=== PATIENT | female | born 1945 ===

== ENCOUNTER 2019-02-03 13:39 | Emergency (ER) | payer MEDICARE ==
[2019-02-03 13:45] VITALS: BMI 38.0
[2019-02-03 13:51] VITALS: RESP 18; TEMP 99.3
--- NOTE | 2019-02-03 14:31 | ED PDOC ---
Arrival/HPI - General Chief Complaint: Lower Extremity Problem/Injury Time Seen by Provider: 02/03/19 13:41 Historian: Patient, Other (daughter) - History of Present Illness Narrative History of Present Illness (Text): 02/03/19 14:28 A 73 year old Mexican-speaking female (translation provided by daughter), whose past medical history includes hypertension and hyperlipidemia, presents to the ED accompanied by daughter for an increased swelling in right leg for the past 2 weeks. Daughter reports swelling is intermittent for the past year but has increased for the past 2 weeks. Daughter states previous X-Rays and ultrasounds were negative for any abnormalities. Daughter notes patient is able to ambulate. Daughter denies patient has any fevers, chills, headache, dizziness, chest pain, shortness of breath, dyspnea on exertion, cough, abdominal pain, nausea, vomiting, diarrhea, back pain, neck pain, urinary/bowel changes, or any other complaints. Time/Duration: Other (2 weeks) Symptom Onset: Gradual Symptom Course: Worsening Activities at Onset: Light Context: Home Past Medical History - Provider Review Nursing Documentation Reviewed: Yes Primary Care Provider: Althea Galo - Infectious Disease Hx of Infectious Diseases: None - Reproductive Menopause: Yes - Cardiac Hx Hypertension: Yes - Pulmonary Hx Respiratory Disorders: No - Neurological Hx Neurological Disorder: No - HEENT Hx HEENT Disorder: Yes Hx Cataracts: Yes (IMMATURE) - Renal Hx Renal Disorder: No - Endocrine/Metabolic Hx Endocrine Disorders: No - Hematological/Oncological Hx Blood Disorders: No - Integumentary Hx Dermatological Disorder: No - Musculoskeletal/Rheumatological Hx Musculoskeletal Disorders: No - Gastrointestinal Hx Gastrointestinal Disorders: No - Genitourinary/Gynecological Hx Genitourinary Disorders: No - Psychiatric Hx Psychophysiologic Disorder: No Hx Substance Use: No - Surgical History Hx Hysterectomy: Yes Other/Comment: ovarian cyst - Anesthesia Hx Anesthesia: Yes Hx Anesthesia Reactions: No Hx Malignant Hyperthermia: No - Suicidal Assessment Feels Threatened In Home Enviroment: No Family/Social History - Physician Review Nursing Documentation Reviewed: Yes Family/Social History: No Known Family HX Smoking Status: Former Smoker Hx Alcohol Use: No Hx Substance Use: No Allergies/Home Meds Allergies/Adverse Reactions: Allergies No Known Allergies Allergy (Verified 02/03/19 13:51) Home Medications: Home Meds Medication Instructions Recorded Confirmed Atorvastatin [Lipitor] 20 mg PO DAILY 07/01/15 02/03/19 Losartan Potassium [Cozaar] 100 mg PO DAILY 02/03/19 02/03/19 MetFORMIN ER [Glucophage XR] 500 mg PO DAILY 02/03/19 02/03/19 Review of Systems - Physician Review All systems were reviewed & negative as marked: Yes - Review of Systems Constitutional: absent: Fevers Respiratory: absent: SOB, Cough Cardiovascular: absent: Chest Pain Gastrointestinal: absent: Abdominal Pain Musculoskeletal: absent: Back Pain Skin: Other (Swollen right leg). absent: Rash Neurological: absent: Headache Endocrine: absent: Diaphoresis Hemo/Lymphatic: absent: Adenopathy Psychiatric: absent: Anxiety, Depression Physical Exam Vital Signs Reviewed: Yes Vital Signs Temp Pulse Resp BP Pulse Ox 02/03/19 13:45 99.3 F 78 18 131/74 99 Temperature: Afebrile Blood Pressure: Normal Pulse: Regular Respiratory Rate: Normal Appearance: Positive for: Well-Appearing, Non-Toxic, Comfortable Pain Distress: None Mental Status: Positive for: Alert and Oriented X 3 - Systems Exam Head: Present: Atraumatic, Normocephalic Pupils: Present: PERRL Extroacular Muscles: Present: EOMI Conjunctiva: Present: Normal Respiratory/Chest: Present: Clear to Auscultation, Good Air Exchange. No: Respiratory Distress, Accessory Muscle Use Cardiovascular: Present: Regular Rate and Rhythm, Normal S1, S2. No: Murmurs Lower Extremity: Present: Tenderness (Tenderness with calf squeeze), Erythema (Circumferential erythema of RLE.), Other (Pulpable dorsalis pedis pulse could be felt. +3 non pitting edema.) Medical Decision Making ED Course and Treatment: 02/03/19 14:37 Impression: A 73 year old female who presents to the ED for a swollen right leg. Plan: -- Labs --Cleocin -- IV Fluids -- LE ultrasound -- Reassess and disposition Prior Visits: Notes and results from previous visits were reviewed. Patient was last seen in the emergency department on 11/16/17. Progress Notes: 02/03/19 17:13 Labs reviewed with no leukocytosis noted or electrolyte abnormalities. US nega tive for DVT. Cleocin ordered with patient updated on lab results and negative dopplers. She understands she must follow up with her PCP. Scripts given. She is stable for discharge. - Lab Interpretations Lab Results: 02/03/19 14:50 02/03/19 14:50 Lab Results 02/03/19 14:50: Sodium 140, Potassium 4.2, Chloride 109 H, Carbon Dioxide 27, Anion Gap 9 L, BUN 16, Creatinine 0.7, Est GFR ( Amer) > 60, Est GFR (N on-Af Amer) > 60, Random Glucose 94, Calcium 9.3, Total Bilirubin 0.4, AST 27, ALT 20, Alkaline Phosphatase 117, Total Protein 7.5, Albumin 3.8, Globulin 3.7, Albumin/Globulin Ratio 1.0 L 02/03/19 14:50: WBC 6.1, RBC 4.10, Hgb 12.5, Hct 40.1, MCV 97.8, MCH 30.5, MCHC 31.2, RDW 14.1, Plt Count 264, MPV 8.8, Neut % (Auto) 58.8, Lymph % (Auto) 29.4, [place] % (Auto) 8.4 H, Eos % (Auto) 3.1, Baso % (Auto) 0.3, Lymph # (Auto) 1.8, [place] # (Auto) 0.5, Eos # (Auto) 0.2, Baso # (Auto) 0.02, Absolute Neuts (auto) 3.57 I have reviewed the lab results: Yes - Scribe Statement The provider has reviewed the documentation as recorded by the Scribe Nathaly Christianson Provider Scribe Attestation: All medical record entries made by the Scribe were at my direction and personally dictated by me. I have reviewed the chart and agree that the record accurately reflects my personal performance of the history, physical exam, medical decision making, and the department course for this patient. I have also personally directed, reviewed, and agree with the discharge instructions and disposition. Disposition/Present on Arrival - Present on Arrival Any Indicators Present on Arrival: No History of DVT/PE: No History of Uncontrolled Diabetes: No Urinary Catheter: No History of Decub. Ulcer: No History Surgical Site Infection Following: None - Disposition Have Diagnosis and Disposition been Completed?: Yes Diagnosis: Cellulitis, Lymphedema Disposition: HOME/ ROUTINE Disposition Time: 17:19 Patient Plan: Discharge Condition: STABLE Discharge Instructions (ExitCare): Cellulitis (ED), Lymphedema (DC) Print Language: DANISH Additional Instructions: All medical record entries made by the Scribe were at my direction and personally dictated by me. I have reviewed the chart and agree that the record accurately reflects my personal performance of the history, physical exam, medical decision making, and the department course for this patient. I have also personally directed, reviewed, and agree with the discharge instructions and disposition. Please follow up with your PCP in 1 week Prescriptions: Clindamycin [Cleocin] 300 mg PO BID 10 Days #20 cap Referrals: Althea Galo MD [Primary Care Provider] - Follow up with primary Mesha Scott MD [Staff Provider] - Follow up with primary Forms: [employer] (Mexican), WORK NOTE
[2019-02-03 15:13] LABS: ALBUMIN 3.8 g/dL (3.0-4.8); ALT/SGPT 20 U/L (7-56); AST/SGOT 27 U/L (14-36); BLOOD UREA NITROGEN 16 mg/dL (7-21); CALCIUM 9.3 mg/dL (8.4-10.5); GFR NON-AFRICAN AMERICAN > 60
[2019-02-03 15:20] LABS: BASO # 0.02 K/mm3 (0.0-2.0); BASO % 0.3 % (0.0-3.0); EOS # 0.2 (0.0-0.7); EOS % 3.1 % (1.5-5.0); HEMOGLOBIN 12.5 g/dL (12.0-16.0); LYMPH # 1.8 (1.2-3.4); LYMPH % 29.4 % (22.0-35.0); MEAN CELL VOLUME 97.8 fl (80.0-105.0); MEAN CORPUSCULAR HEMOGLOBIN 30.5 pg (25.0-35.0); MEAN CORPUSCULAR HGB CONC 31.2 g/dl (31.0-37.0); MEAN PLATELET VOLUME 8.8 fl (7.0-11.0); MONO # 0.5 (0.1-0.6); MONO % 8.4 % (1.0-6.0); RBC 4.1 10^6/uL (3.5-6.1); RED CELL DISTRIBUTION WIDTH 14.1 % (11.5-14.5); WHITE BLOOD COUNT 6.1 10^3/uL (4.5-11.0)
[2019-02-03 17:01] VITALS: BP 126/77; PULSE 65; O2SAT 100
--- NOTE | 2019-02-04 12:16 | US ---
PROCEDURE: Right lower extremity venous US HISTORY: Leg pain and swelling. Evaluate for DVT. PHYSICIAN(S): Fredo Obrien M.D. TECHNIQUE: Duplex sonography and color-flow Doppler with graded compression were used to evaluate the deep venous system of the right lower extremity. FINDINGS: The visualized deep venous system of the right lower extremity is sonographically normal and compressible. Normal waveforms and augmentation are seen. There is no sonographic evidence for deep venous thrombosis in the visualized segments of the right lower extremity. The calf veins are not adequately visualized due to swelling There are enlarged hyperplastic lymph nodes in the inguinal area IMPRESSION: 1. No sonographic evidence for deep venous thrombosis in the visualized segments of the right lower extremity. 2. Limited study
== END 2019-02-03 17:52 | disposition home or self-care (01) ==
LOC: ED 13:39
DX: I89.0 Lymphedema, not elsewhere classified (principal); L03.115 Cellulitis of right lower limb; I10 Essential (primary) hypertension; Z87.891 Personal history of nicotine dependence